=== PATIENT | female | born 1975 | race Caucasian/White ===

== ENCOUNTER 2021-06-14 21:30 | Observation (INO) ==
[2021-06-14 22:23] LABS: Basophils # (auto) 0.05 K/uL (0-0.2); Basophils % (auto) 0.8 %; Eosinophils % (auto) 1.5 %; Hematocrit (blood only) 41.7 % (37-47); Hemoglobin 14.9 g/dL (12.0-16.0); Immature Granulocytes # (auto) 0.02 K/uL (0.00-0.02); Immature Granulocytes % (auto) 0.3 %; Lymphocytes # (auto) 2.06 K/uL (1.2-3.4); Lymphocytes % (auto) 31.8 %; Mean Corpuscular Hemoglobin 31.4 pg (25-34); Mean Corpuscular Hgb Conc 35.7 g/dL (32-36); Mean Platelet Volume 9.1 fL (7.4-10.4); Monocytes # (auto) 0.54 K/uL (0.11-0.59); Monocytes % (auto) 8.3 %; Neutrophils % (auto) 57.3 %; Platelet Count 274 K/uL (130-400); RDW Coefficient of Variation 12.9 % (11.5-14.5); RDW Standard Deviation 42.4 fL (36.4-46.3); Red Blood Count 4.74 M/uL (4.2-5.4); White Blood Count 6.47 K/uL (4.8-10.8)
[2021-06-14 22:30] LABS: INR 1.1 (0.9-1.1); Partial Thromboplastin Ratio 0.9; Partial Thromboplastin Time 25.6 Seconds (21.0-31.0); Prothrombin Time 11.4 Seconds (9.0-12.0)
[2021-06-14 22:41] LABS: Albumin Globulin Ratio 1.4 (0.9-2); Albumin Level 4.8 gm/dl (3.4-5.0); BUN Creatinine Ratio 12.1 (10-20); Bilirubin,Total 0.4 mg/dl (0.2-1.0); Calcium 9.4 mg/dl (8.5-10.1); Creatinine Clr Calc Pharmacy 67.9 ml/min; Est GFR (African American) 79.8 ml/min; Est GFR (Non-African American) 68.8 ml/min; Globulin 3.4 gm/dl (2.5-4.0); Potassium 3.8 mmol/L (3.5-5.1); Total Protein 8.2 gm/dl (6.0-8.3)
[2021-06-14 22:45] LABS: Troponin I High Sensitivity 2.6 pg/ml (0-14)
[2021-06-14 22:57] LABS: D Dimer 200 ug/L FEU (0-500)
[2021-06-14] MEDS ORDERED: ASPIRIN 81 MG CHEW PO STA (23:03)
[2021-06-14] MEDS ORDERED: NITROGLYCERIN SL 0.4 MG/TAB TAB SL STA (23:03)
[2021-06-14] MEDS ORDERED: ASPIRIN CHEW 324 MG ONE (23:07)
[2021-06-14] MEDS ORDERED: ONDANSETRON INJ 2 MG/ML 2 ML VIAL IV STA (23:35)
--- NOTE | 2021-06-14 23:38 | Emergency Department Note ---
Impression & Plan Retrosternal chest pain, Severe hypertension ED Provider Note INFORMANT: Patient ED PROVIDER(S): Scott Paredes MD CHIEF COMPLAINT: Chest pain PLAN: Disposition: Admitted Condition: Good Outpatient prescription management: none Referral: None MEDICAL DECISION MAKING: Patient presented with chest pain. Work-up was initiated. Initial ECG revealed a nonspecific ST abnormality. No ST elevation. No pericarditis. Repeat ECG did not reveal any significant ST elevation. There was flattening of the T wave in V2. The patient had an unremarkable CBC, chemistry panel, troponin and D- dimer. She was given nitro due to severe hypertension and chest pain. She also given aspirin. She noted the nitro did not help with the pain. She was given a dose of Dilaudid and Zofran. That did help with her pain. She was given a GI cocktail which did not seem to have much effect. She was given another dose of Dilaudid. Chest x-ray was unremarkable. Given the hypertension and chest pain further management in the hospital was felt to be appropriate. This was discussed with the patient. Consultation was made with the [facility], Dr. Borges. The patient was evaluated in the ER for further management. Triage Nursing notes reviewed and agree them. Vital Signs: reviewed and remarkable for no significant abnormalities Differential diagnosis: Cardiac ischemia, aortic dissection, pulmonary embolism, pneumothorax, pneumonia, pericarditis, myocarditis, esophageal rupture, GERD, cholecystitis, pancreatitis, musculoskeletal, as well as other pathologies. Diagnostics interpreted by me: ECG: Twelve-lead ECG reveals a normal sinus rhythm at [address] abnormality. No ST elevation or depression. No pericarditis. Normal axis and QRS. ECG #2 reveals a normal sinus rhythm at 99 bpm. There is nonspecific T wave anteriorly. No ST elevation. Normal axis. Cardiac Monitoring: Cardiac monitoring ordered by me: The patient was placed on continuous cardiac monitoring and observed. It revealed a normal sinus rhythm at 91 beats per minute without ectopy or evidence of dysrhythmia. Imaging studies: Chest x-ray. Findings: A chest x-ray was performed and revealed no pneumothorax, effusion, infiltrate, pulmonary edema, free air under the diaphragm, or wide mediastinum. Impression: No acute disease. HPI: The patient is a 46 year old female who presents to the Emergency Room with complaints of chest pain . This started last night, resolved, recurred and is back since 1900 hrs tonight. Patient's notes it is retrosternal. Pain radiates to the neck and left shoulder. The patient also notes the following associated symptoms, mild shortness of breath. The patient has tried an extra Prilosec for relieving factors. Current pain is rated as 8/10. Pt denies LOC, headache, fevers, chills, diaphoresis, visual changes, neck pain, nausea, vomiting, abdominal pain, back pain, melena, hematochezia, urinary symptoms, numbness, weakness, lymphadenopathy, rash, or other complaints. ROS: See above HPI for pertinent positives & negatives. A total of 10 systems reviewed and were otherwise negative. PAST MEDICAL HISTORY:See Below , GERD PAST SURGICAL HISTORY:See Below, FAMILY HISTORY:See Below SOCIAL HISTORY:See Below, non-smoker HOME MEDICATIONS:See Below ALLERGIES:See Below VITALS:See Below PHYSICAL EXAMINATION: GENERAL: Awake, alert, uncomfortable-appearing, in no distress HENT: Normocephalic, atraumatic. Oropharynx unremarkable. EYES: Normal conjunctiva. Sclera non-icteric. NECK: Inspection normal. Non-tender. Supple. No nuchal rigidity. FROM. No masses. RESPIRATORY: Clear to auscultation. No wheezes. No rales. Normal respiratory effort. CARDIAC: Normal rate. Normal rhythm. No murmurs. No rubs. Extremities warm and well perfused. Pulses equal. No JVD. GI: Soft, non-distended. No tenderness to palpation. No rebound or guarding. No masses. RECTAL: Deferred. MUSCULOSKELETAL: Atraumatic. Chest examination reveals no tenderness. The back is symmetrical on inspection without obvious abnormality. There is no CVA tenderness to palpation. No joint edema. LOWER EXTREMITIES: Calves are equal size bilaterally and non-tender. No edema. No discoloration. NEURO: Normal sensorium. No sensory or motor deficits noted. SKIN: No rash or jaundice noted. Scott Paredes MD Past Med/Surg History Social History Smoking Status: Never smoker Feels Safe at Home: Yes Allergies Allergies Allergy/AdvReac Type Severity Reaction Status Date / Time Penicillins Allergy Rash Verified 06/14/21 22:23 Home Meds Home Medications Medication Instructions Recorded Confirmed ibuprofen 200 mg tablet 600 mg PO Q6H PRN 06/14/21 06/14/21 omeprazole 40 mg capsule,delayed 40 mg PO DAILY 06/14/21 06/14/21 release Results & Data (ED) Vital Signs Vital Signs - 24 hr 06/14/21 21:32 06/14/21 21:50 06/14/21 22:00 Temperature 36.6 C Temperature Source Temporal Artery Scan Pulse Rate 113 H 114 H 116 H Pulse Rate [Apical] Pulse Rate from SpO2 Sensor Pulse Rhythm [Apical] Respiratory Rate 16 25 H 15 Respiratory Depth Blood Pressure 141/99 H Blood Pressure [Left Arm] Blood Pressure Mean 113 Blood Pressure Mean [Left Arm] Blood Pressure Position Sitting Pulse Oximetry 98 Oxygen Delivery Method Room Air Sepsis Recent Fever Within 48 Hours No Sepsis New/Unexplained Change in Mental Status No Sepsis Action Taken by Nursing No Action Required 06/14/21 22:10 06/14/21 22:15 06/14/21 22:16 Temperature Temperature Source Pulse Rate 123 H Pulse Rate [Apical] 108 H Pulse Rate from SpO2 Sensor Pulse Rhythm [Apical] Regular Respiratory Rate 25 H 18 Respiratory Depth Normal Blood Pressure Blood Pressure [Left Arm] Blood Pressure Mean Blood Pressure Mean [Left Arm] Blood Pressure Position Pulse Oximetry 99 Oxygen Delivery Method Room Air Room Air Sepsis Recent Fever Within 48 Hours Sepsis New/Unexplained Change in Mental Status Sepsis Action Taken by Nursing 06/14/21 22:18 06/14/21 22:20 06/14/21 22:30 Temperature Temperature Source Pulse Rate 109 H 112 H 101 H Pulse Rate [Apical] Pulse Rate from SpO2 Sensor 109 H 115 H 101 H Pulse Rhythm [Apical] Respiratory Rate 20 25 H 19 Respiratory Depth Blood Pressure 191/102 H 202/110 H Blood Pressure [Left Arm] Blood Pressure Mean 131 140 Blood Pressure Mean [Left Arm] Blood Pressure Position Pulse Oximetry 100 98 100 Oxygen Delivery Method Sepsis Recent Fever Within 48 Hours Sepsis New/Unexplained Change in Mental Status Sepsis Action Taken by Nursing 06/14/21 22:31 06/14/21 22:40 06/14/21 22:50 Temperature Temperature Source Pulse Rate 104 H 105 H Pulse Rate [Apical] 100 H Pulse Rate from SpO2 Sensor 100 H 102 H Pulse Rhythm [Apical] Respiratory Rate 15 16 23 Respiratory Depth Blood Pressure Blood Pressure [Left Arm] 202/110 H Blood Pressure Mean Blood Pressure Mean [Left Arm] 140 Blood Pressure Position Pulse Oximetry 99 100 98 Oxygen Delivery Method Room Air Sepsis Recent Fever Within 48 Hours Sepsis New/Unexplained Change in Mental Status Sepsis Action Taken by Nursing 06/14/21 23:00 06/14/21 23:10 06/14/21 23:20 Temperature Temperature Source Pulse Rate 109 H 128 H 110 H Pulse Rate [Apical] Pulse Rate from SpO2 Sensor 107 H 126 H 112 H Pulse Rhythm [Apical] Respiratory Rate 21 20 14 Respiratory Depth Blood Pressure 201/119 H Blood Pressure [Left Arm] Blood Pressure Mean 146 Blood Pressure Mean [Left Arm] Blood Pressure Position Pulse Oximetry 99 98 98 Oxygen Delivery Method Sepsis Recent Fever Within 48 Hours Sepsis New/Unexplained Change in Mental Status Sepsis Action Taken by Nursing 06/14/21 23:25 06/14/21 23:30 06/15/21 00:00 Temperature Temperature Source Pulse Rate 103 H 104 H 96 H Pulse Rate [Apical] Pulse Rate from SpO2 Sensor Pulse Rhythm [Apical] Respiratory Rate 18 15 19 Respiratory Depth Blood Pressure 178/104 H 169/114 H 163/105 H Blood Pressure [Left Arm] Blood Pressure Mean 128 132 124 Blood Pressure Mean [Left Arm] Blood Pressure Position Pulse Oximetry 99 100 99 Oxygen Delivery Method Sepsis Recent Fever Within 48 Hours Sepsis New/Unexplained Change in Mental Status Sepsis Action Taken by Nursing 06/15/21 00:30 06/15/21 01:00 06/15/21 01:30 Temperature Temperature Source Pulse Rate 98 H 95 H 105 H Pulse Rate [Apical] Pulse Rate from SpO2 Sensor Pulse Rhythm [Apical] Respiratory Rate 21 16 Respiratory Depth Blood Pressure 185/115 H 166/109 H 182/123 H Blood Pressure [Left Arm] Blood Pressure Mean 138 128 142 Blood Pressure Mean [Left Arm] Blood Pressure Position Pulse Oximetry 97 99 97 Oxygen Delivery Method Sepsis Recent Fever Within 48 Hours Sepsis New/Unexplained Change in Mental Status Sepsis Action Taken by Nursing 06/15/21 01:35 Temperature Temperature Source Pulse Rate Pulse Rate [Apical] 99 H Pulse Rate from SpO2 Sensor Pulse Rhythm [Apical] Regular Respiratory Rate Respiratory Depth Normal Blood Pressure Blood Pressure [Left Arm] Blood Pressure Mean Blood Pressure Mean [Left Arm] Blood Pressure Position Pulse Oximetry 95 Oxygen Delivery Method Room Air Sepsis Recent Fever Within 48 Hours Sepsis New/Unexplained Change in Mental Status Sepsis Action Taken by Nursing Laboratory Data Result diagrams: 06/14/21 21:50 06/14/21 21:50 Lab Results 06/14/21 06/14/21 06/14/21 Range/Units 21:50 21:50 21:50 WBC 6.47 (4.8-10.8) K/uL RBC 4.74 (4.2-5.4) M/uL Hgb 14.9 (12.0-16.0) g/dL Hct 41.7 (37-47) % MCV 88.0 (80-100) fL MCH 31.4 (25-34) pg MCHC 35.7 (32-36) g/dL RDW Std Deviation 42.4 (36.4-46.3) fL RDW Coeff of Maryanne 12.9 (11.5-14.5) % Plt Count 274 (130-400) K/uL MPV 9.1 (7.4-10.4) fL Immature Gran % (Auto) 0.3 % Neut % (Auto) 57.3 % Lymph % (Auto) 31.8 % [place] % (Auto) 8.3 % Eos % (Auto) 1.5 % Baso % (Auto) 0.8 % Neut # (Auto) 3.70 (1.4-6.5) K/uL Lymph # (Auto) 2.06 (1.2-3.4) K/uL [place] # (Auto) 0.54 (0.11-0.59) K/uL Eos # (Auto) 0.10 (0-0.5) K/uL Baso # (Auto) 0.05 (0-0.2) K/uL Immature Gran # (Auto) 0.02 (0.00-0.02) K/uL PT 11.4 (9.0-12.0) Seconds INR 1.1 (0.9-1.1) APTT 25.6 (21.0-31.0) Seconds PTT Ratio 0.9 D-Dimer (0-500) ug/L FEU Sodium 137 (136-145) mmol/L Potassium 3.8 (3.5-5.1) mmol/L Chloride 104 (98-107) mmol/L Carbon Dioxide 25 (21-32) mmol/L Anion Gap 8 (3-11) BUN 12 (6-23) mg/dl Creatinine 0.99 (0.6-1.2) mg/dl Est Cr Clr Drug Dosing 67.9 ml/min Est GFR ( Amer) 79.8 ml/min Est GFR (Non-Af Amer) 68.8 ml/min BUN/Creatinine Ratio 12.1 (10-20) Glucose 89 (70-99(Fasting)) mg/dl Calcium 9.4 (8.5-10.1) mg/dl Total Bilirubin 0.4 (0.2-1.0) mg/dl AST 14 (13-39) U/L ALT 4 L (7-52) U/L Alkaline Phosphatase 54 (34-104) U/L Troponin I High Sens 2.6 (0-14) pg/ml Total Protein 8.2 (6.0-8.3) gm/dl Albumin 4.8 (3.4-5.0) gm/dl Globulin 3.4 (2.5-4.0) gm/dl Albumin/Globulin Ratio 1.4 (0.9-2) Lipase 27 (11-82) U/L SARS-CoV-2, RNA, NAAT (NEGATIVE) 06/14/21 06/15/21 06/15/21 Range/Units 21:50 00:55 01:18 WBC (4.8-10.8) K/uL RBC (4.2-5.4) M/uL Hgb (12.0-16.0) g/dL Hct (37-47) % MCV (80-100) fL MCH (25-34) pg MCHC (32-36) g/dL RDW Std Deviation (36.4-46.3) fL RDW Coeff of Maryanne (11.5-14.5) % Plt Count (130-400) K/uL MPV (7.4-10.4) fL Immature Gran % (Auto) % Neut % (Auto) % Lymph % (Auto) % [place] % (Auto) % Eos % (Auto) % Baso % (Auto) % Neut # (Auto) (1.4-6.5) K/uL Lymph # (Auto) (1.2-3.4) K/uL [place] # (Auto) (0.11-0.59) K/uL Eos # (Auto) (0-0.5) K/uL Baso # (Auto) (0-0.2) K/uL Immature Gran # (Auto) (0.00-0.02) K/uL PT (9.0-12.0) Seconds INR (0.9-1.1) APTT (21.0-31.0) Seconds PTT Ratio D-Dimer 200 (0-500) ug/L FEU Sodium (136-145) mmol/L Potassium (3.5-5.1) mmol/L Chloride (98-107) mmol/L Carbon Dioxide (21-32) mmol/L Anion Gap (3-11) BUN (6-23) mg/dl Creatinine (0.6-1.2) mg/dl Est Cr Clr Drug Dosing ml/min Est GFR ( Amer) ml/min Est GFR (Non-Af Amer) ml/min BUN/Creatinine Ratio (10-20) Glucose (70-99(Fasting)) mg/dl Calcium (8.5-10.1) mg/dl Total Bilirubin (0.2-1.0) mg/dl AST (13-39) U/L ALT (7-52) U/L Alkaline Phosphatase (34-104) U/L Troponin I High Sens < 2.3 (0-14) pg/ml Total Protein (6.0-8.3) gm/dl Albumin (3.4-5.0) gm/dl Globulin (2.5-4.0) gm/dl Albumin/Globulin Ratio (0.9-2) Lipase (11-82) U/L SARS-CoV-2, RNA, NAAT NEGATIVE (NEGATIVE) Administered Medications Nitroglycerin (Nitroglycerin 2% Ointment 30gm Tube) 0.5 inch EXT Q6H ALVARO Stop: 07/15/21 02:01 Last Admin: 06/15/21 02:15 Dose: 0.5 inch Documented by: [id number] Discontinued Medications Al Hydrox/Mg Hydrox/Simethicone (Gi Cocktail Ed Use) Confirm Administered Dose 1 dose PO .STK-MED ONE Stop: 06/15/21 00:22 Last Admin: 06/15/21 00:27 Dose: 1 dose Documented by: [id number] Aspirin (Aspirin 81 Mg Chew) 324 mg PO NOW STA Stop: 06/14/21 23:04 Last Admin: 06/14/21 23:10 Dose: 324 mg Documented by: [id number] Aspirin (Aspirin Chew 324 Mg) Confirm Administered Dose 324 mg .ROUTE .STK-MED ONE Stop: 06/14/21 23:08 Last Admin: 06/14/21 23:10 Dose: Not Given Documented by: [id number] Al Hydrox/Mg Hydrox/Simethicone 18 ml/ Lidocaine HCl 6 ml/ BARCODE IDENTIFIER 1 ea 0 ml PO ONE ONE Stop: 06/15/21 00:24 Last Admin: 06/15/21 00:28 Dose: Not Given Documented by: [id number] Hydromorphone HCl (Hydromorphone Inj 0.5 Mg/0.5 Ml Syr) 0.5 mg IV Q15M PRN PRN Reason: Pain Stop: 06/28/21 23:34 Last Admin: 06/15/21 01:32 Dose: 0.5 mg Documented by: [id number] Admin: 06/14/21 23:54 Dose: 0.5 mg Documented by: [id number] Nitroglycerin (Nitroglycerin Sl 0.4 Mg/Tab Tab) 0.4 mg SL NOW STA Stop: 06/14/21 23:04 Last Admin: 06/14/21 23:10 Dose: 0.4 mg Documented by: [id number] Ondansetron HCl (Ondansetron Inj 2 Mg/Ml 2 Ml Vial) 4 mg IV NOW STA Stop: 06/14/21 23:36 Last Admin: 06/14/21 23:55 Dose: Not Given Documented by: [id number] Discharge Plan Visit Data Chief Complaint: Chest Pain Stated Complaint: CHEST PAIN, LEFT SHOULDER PAIN ED Provider: Scott Paredes Discharge Problem: Retrosternal chest pain, Severe hypertension Patient Disposition: Admitted As Inpatient Discharge Instructions Interventions: ED Discharge Assessment Last Done: 06/15/21 02:28
[2021-06-14] MEDS: HYDROmorphone INJ 0.5 MG/0.5 ML SYR IV PRN (23:54)
[2021-06-15] MEDS ORDERED: GI COCKTAIL ED USE PO ONE (00:21)
[2021-06-15] MEDS ORDERED: ALUMINUM/MAGNESIUM SUSP 18 ML, LIDOCAINE VISCOUS 2% SOLN 6 ML, BARCODE IDENTIFIER 1 EA PO ONE (00:23)
[2021-06-15] MEDS: HYDROmorphone INJ 0.5 MG/0.5 ML SYR IV PRN ×4 (01:32→14:16)
[2021-06-15] MEDS: NITROGLYCERIN 2% OINTMENT 30GM TUBE EXT SCH ×4 (02:15→21:58)
[2021-06-15] MEDS ORDERED: POLYETHYLENE (MIRALAX) 17 GM PACK PO PRN (02:58)
[2021-06-15] MEDS ORDERED: NITROGLYCERIN SL 0.4 MG/TAB TAB SL PRN (02:58)
[2021-06-15] MEDS ORDERED: ACETAMINOPHEN 325 MG TAB PO PRN (02:58)
[2021-06-15] MEDS ORDERED: METOPROLOL TARTRATE 1 MG/ML VIAL IV PRN (02:58)
[2021-06-15 05:52] LABS: Basophils # (auto) 0.04 K/uL (0-0.2); Basophils % (auto) 0.6 %; Eosinophils # (auto) 0.06 K/uL (0-0.5); Eosinophils % (auto) 0.9 %; Hematocrit (blood only) 35.4 % (37-47); Hemoglobin 12.6 g/dL (12.0-16.0); Lymphocytes # (auto) 1.71 K/uL (1.2-3.4); Lymphocytes % (auto) 26.9 %; Mean Corpuscular Hemoglobin 31.2 pg (25-34); Mean Corpuscular Hgb Conc 35.6 g/dL (32-36); Mean Corpuscular Volume 87.6 fL (80-100); Mean Platelet Volume 8.9 fL (7.4-10.4); Monocytes # (auto) 0.75 K/uL (0.11-0.59); Monocytes % (auto) 11.8 %; Neutrophils % (auto) 59.8 %; Platelet Count 231 K/uL (130-400); RDW Standard Deviation 41.9 fL (36.4-46.3); Red Blood Count 4.04 M/uL (4.2-5.4); White Blood Count 6.36 K/uL (4.8-10.8)
[2021-06-15 06:21] LABS: Troponin I High Sensitivity 2.3 pg/ml (0-14)
[2021-06-15 06:27] LABS: BUN Creatinine Ratio 18.2 (10-20); Calcium 8.7 mg/dl (8.5-10.1); Chol HDL Ratio 2.7 (0-5); Creatinine Clr Calc Pharmacy 74.5 ml/min; Est GFR (Non-African American) 79.3 ml/min
--- NOTE | 2021-06-15 07:09 | XRay Report ---
XR chest 1V portable HISTORY: 46 years-old Female Chest Pain . Acute atypical chest pain COMPARISON: None TECHNIQUE: Portable AP view of the chest FINDINGS: The cardiomediastinal and hilar silhouettes are within normal limits. No pneumothorax, pleural effusi on, airspace consolidation or overt pulmonary edema. The bones appear grossly intact. IMPRESSION: No acute process. ACT 112: Negative or not required by law. The above report was generated using voice recognition software. It may contain grammatical, syntax o r spelling errors. Electronically signed by: Bharath Kee M.D. 06/15/2021 7:08 AM
[2021-06-15] MEDS: PANTOprazole 40 MG TAB PO SCH (07:28)
[2021-06-15] MEDS: ASPIRIN 81 MG ECTAB PO SCH (07:28)
[2021-06-15 07:52] LABS: Estimated Average Glucose 103 mg/dl; Hemoglobin A1C 5.2 % (4.5-5.6)
--- NOTE | 2021-06-15 07:58 | History and Physical Report ---
DATE OF ADMISSION: 06/14/2021. CHIEF COMPLAINT: Chest pain. HISTORY OF PRESENT ILLNESS: This is a 46-year-old female with no significant past medical history, who presented with chest pain. The patient says on Sunday from 3:00 to 11:00 p.m. she had chest pain, but it got resolved in the night and she went to sleep and again on 06/14/2021 in the evening she started having chest pain in the middle of the chest and some tightness in her throat and pain was radiating to her left shoulder and some tingliness in the left arm, about 5/10 in severity, but constant pain. Once in a while, she used to get jabs, which are like 8/10 in severity, which prompted her to come to the ER. In the ER, she was given nitro. She was found to have elevated blood pressure. With the nitro, the blood pressure dropped a little bit, but it did not help her pain much and GI cocktail was given, that also did not help much. After a dose of Dilaudid, her pain has come down to 3/10 in severity. Currently, resting comfortably, hemodynamically stable. There is no nausea, no sweating, no headache or dizziness. No blurred visions, no shortness of breath. Appetite is okay. No difficulty swallowing. No blurred visions, no earache, no runny nose, no cough, no fevers, no abdominal pain. Normal bowel and bladder movements. No swelling in the legs. Otherwise, walks and climbs steps okay. The patient states about a couple of years ago, when she was having breast biopsy, in 2019 she was told that her blood pressure was running high at that time, but she does not go to doctors regularly. ALLERGIES: PENICILLIN. PAST MEDICAL HISTORY: As mentioned above. PAST SURGICAL HISTORY: Excision of the breast lesion. MEDICATIONS: Omeprazole 40 mg p.o. daily, ibuprofen as needed. FAMILY HISTORY: Significant for maternal grandmother had breast cancer. SOCIAL HISTORY: No smoking. Alcohol occasional. No drug use. REVIEW OF SYSTEMS: As per HPI. Rest of the review of systems is negative. PHYSICAL EXAMINATION: GENERAL: The patient is of moderate build, not in acute distress. VITAL SIGNS: Temperature 36.6, pulse 99, respiratory rate 21, blood pressure 166/109, oxygen 95% on room air. HEENT: Pupils equal, round and reactive to light. Oral mucosa moist. NECK: No JVD, no neck masses. CARDIOVASCULAR: S1 and S2 heard. Regular rate and rhythm. No murmur, no gallop. RESPIRATORY SYSTEM: Normal AP diameter. No accessory muscle use. No wheezing, no crackles. ABDOMEN: Soft. Bowel sounds present. Nontender, no distention. CENTRAL NERVOUS SYSTEM: Cranial nerves II-XII grossly intact, nonfocal. EXTREMITIES: No edema, no erythema. LABORATORY DATA: WBC 6.4, hemoglobin 14.9, hematocrit 41.7, platelets 274. PT 11.4, INR 1.1, APTT 25.6. D-dimer 200. Sodium 137, potassium 3.8, chloride 104, bicarbonate 25, BUN 12, creatinine 0.9, serum glucose 89, calcium 9.4, total bilirubin 0.4, AST 14, ALT 4, alkaline phosphatase 54. Troponin I high sensitivity less than 2.3, lipase of 27. SARS-CoV-2 RNA negative. IMAGING DATA: Chest x-ray, no acute findings. EKG: Normal sinus rhythm at a rate of 99, no significant change was found. ASSESSMENT AND PLAN: This is a 46-year-old female who presents with chest pain and also hypertensive urgency. 1. Chest pain: Rule out acute coronary syndrome. The initial workup is negative. Will follow serial enzymes, echo. Keep her n.p.o. and consult cardiology in the a.m. for further recommendation. Monitor in the tele. 2. Hypertensive urgency: Could be cause of her chest pain. Says couple of years ago when she had breast biopsy, at that time she was told that her blood pressure is very high and had to hold the procedure for some time at that time. Will place her on nitroglycerin paste and also IV Lopressor p.r.n. Will follow the echocardiogram,for any LVH. May need antihypertensives at the time of discharge. Needs to closely follow up with PCP. 3. Deep venous thrombosis prophylaxis: Sequential compression devices. DISPOSITION: Observation in med tele. PT/OT prior to discharge. Social service to help with discharge planning. Job ID: [id number] MTDD
[2021-06-15] MEDS: amLODIPine BESYLATE 5 MG TAB PO SCH (09:06)
[2021-06-15] MEDS: ONDANSETRON INJ 2 MG/ML 2 ML VIAL IV PRN ×2 (09:12→18:15)
[2021-06-15] MEDS: ACETAMINOPHEN SUSP 325 MG/10.15 ML UDC PO PRN ×2 (10:17→18:11)
--- NOTE | 2021-06-15 11:17 | Communication Note ---
Date of Service: June 15, 2021 Patient seen and examined 46F who presented with chest pain. Reported h/o left rotator cuff problems for some years with intermittent left shoulder pain. Reported an episode of chest pain this morning, described as sharp, lasted about 10-20 mins,not referred, not associated with diaphoresis at the time. EKG at the time did not show ST-T changes. Reports headache and nausea at the time of my evaluation. Physical exam unremarkable. Labs unremarkable including troponins. Chest pain EKG did not show ST-T changes. Troponins negative so far. Denied family hx of heart problems. Denied smoking/illicit drug use Will appreciate Cards eval. Will follow up TTE Other possibilities include GI related such as gastritis/esophagitis considering patient's use of ibuprofen for shoulder pain. Continue PPI BP was markedly elevated on presentation. Patient also reports being told her BP was elevated 3 yrs ago. Has not seen a PCP in 4 yrs. Hence, has Hypertensive urgency. This could be contributing to chest pain. Started on amlodipine this morning. Agree with other plans as detailed in H&P by Dr Borges this morning
--- NOTE | 2021-06-15 13:44 | Cardiology Consultation ---
Date of Consultation June 15, 2021 Assessment & Plan (1) Hypertensive urgency: (2) Chest pain: (3) Headache: The pathophysiology of hypertensive urgency was discussed with the patient at great lengths today. Her echocardiogram reveals normal wall motion with mild concentric LVH. She has been started on amlodipine 5 mg daily with good response I will also check a renal artery ultrasound to complete her secondary work-up. Consideration given be given to sleep medicine evaluation as an outpatient as well. Recommend follow-up as an outpatient in 2 weeks and consideration for stress testing will be given at that time. Okay to discharge to home from a cardiac standpoint. History of Present Illness Reason for Consultation: Hypertensive urgency Requesting Physician: ROBERT Attending Physician: Kianna Jimenez MD Allergies Allergy/AdvReac Type Severity Reaction Status Date / Time Penicillins Allergy Rash Verified 06/14/21 22:23 Home Medications Medication Instructions Recorded Confirmed Type ibuprofen 200 mg tablet 600 mg PO Q6H PRN 06/14/21 06/14/21 History omeprazole 40 mg capsule,delayed 40 mg PO DAILY 06/14/21 06/14/21 History release Patient History Social History Smoking Status: Never smoker Second Hand Exposure: No; Do You Dip or Chew Tobacco: No; Tobacco Cessation Education Requested by Patient: No Hx Alcohol Use: Yes Alcohol type: beer Hx Substance Use: No Preferred Language: [place] Communication Ability: Effective Pharmacy Operations Specialist Required: No Beliefs That Will Affect Care: None Current Living Situation: Spouse Other Information That Helps Us Care for You: No Feels Safe at Home: Yes Safety Concerns: Feels Safe At This Time Assistive Devices: None Review of Systems Review of Systems: All systems reviewed & are unremarkable except as noted in HPI & below Physical Exam Physical Exam: Physical Exam: General: Awake, alert and oriented x 3. No acute distress. HEENT: Normocephalic, atraumatic. Pupils equal, round and reactive to light and accommodation. Extraocular muscles are intact. Anicteric sclera. Moist mucous membranes. Neck: No JVD. No bruit. Cardiovascular: Regular. No S-4. Normal S-1 and S-2. No S-3. No murmurs, rubs or gallops. Pulmonary: Clear to auscultation bilaterally. No rales, rhonchi, or wheezing. Abdomen: Bowel sounds x 4, soft. No rebound, guarding or tenderness. No organomegaly. Extremities: No clubbing, cyanosis or edema. +2 pedal pulses bilaterally. Skin: Warm and dry. Results & Data ([facility]) Vital Signs (Past 12 Hours) Vital Signs Temp Pulse Pulse Resp BP BP Pulse Ox 06/15/21 11:25 36.7 C 101 H 16 137/84 97 06/15/21 09:10 75 157/82 H 06/15/21 07:29 89 178/88 H 06/15/21 06:15 82 06/15/21 04:51 142/91 H 06/15/21 02:58 36.8 C 93 H 104 H 18 181/112 H 97 06/15/21 02:30 99 H 12 97 06/15/21 02:24 104 H 12 179/109 H 99 06/15/21 02:00 91 H 15 184/108 H 99 Pulse Ox 06/15/21 11:25 06/15/21 09:10 06/15/21 07:29 06/15/21 06:15 06/15/21 04:51 06/15/21 02:58 97 06/15/21 02:30 06/15/21 02:24 06/15/21 02:00
--- NOTE | 2021-06-15 14:36 | Ultrasound Report ---
US duplex renal artery HISTORY: 46 years-old Female new onset hypertension acute hypertension COMPARISON: None TECHNIQUE: Multiple real-time sonographic images of the renal vascular structures were obtained asses sing grayscale appearance, color and spectral flow FINDINGS: The right kidney measures 11 cm in length. No shadowing right-sided renal calculi. Peak systolic [place] within the right renal artery measure up to 120 cm/s with resistive indices measuring up to 0. 71. 6 mm calculus within the interpolar left kidney. No hydronephrosis. Peak systolic velocities within t he left renal artery measure up to 81 cm/s with resistive indices measuring up to 0.72. Left renal ar jayde is suboptimally visualized. Normal plug flow within the abdominal aorta with peak systolic velocities measuring up to 108 cm/s. IMPRESSION: No evidence of renal artery stenosis. ACT 112: Negative or not required by law. The above report was generated using voice recognition software. It may contain grammatical, syntax o r spelling errors. Electronically signed by: Bharath Kee M.D. 06/15/2021 2:34 PM
--- NOTE | 2021-06-15 20:06 | CT Scan Report ---
CT SCAN OF THE BRAIN WITHOUT IV CONTRAST CLINICAL HISTORY: Headache. Hypertensive urgency. COMPARISON STUDY: No priors. TECHNIQUE: Unenhanced axial CT scan of the brain is performed from the vertex to the skull base. A d ose lowering technique was utilized adhering to the principles of ALARA. CT DOSE: 537.48 mGy.cm FINDINGS: Brain parenchyma: The brain parenchyma is normal in appearance. There is no hemorrhage, mass effect, or evidence of acute territorial ischemia by CT criteria. Cortes-white matter differentiation is preser giulia. No extra-axial fluid collection is seen. Ventricles, sulci, cisterns: Normal in configuration. Intracranial vasculature: The visualized intracranial vasculature at the skull base is normal in appe arance. Calvarium: Unremarkable. Sinuses and mastoids: The visualized paranasal sinuses are clear. The mastoid air cells are well pneu matized. Orbits: The bony orbits are grossly intact. IMPRESSION: No acute intracranial abnormality. ACT 112: Negative or not required by law. Electronically signed by: Elie Locke M.D. 06/15/2021 8:03 PM
[2021-06-15] MEDS ORDERED: PROMETHAZINE HCL 12.5 MG in SODIUM CHLORIDE 0.9% 50 ML IV PRN (21:48)
[2021-06-15] MEDS ORDERED: traMADol HCL 50 MG TABLET PO PRN (21:48)
[2021-06-15] MEDS ORDERED: HYDROmorphone INJ 0.5 MG/0.5 ML SYR IV STA (22:46)
[2021-06-16] MEDS: ACETAMINOPHEN SUSP 325 MG/10.15 ML UDC PO PRN (02:33)
--- NOTE | 2021-06-16 05:54 | Electrocardiogram Report ---
Test Reason : Blood Pressure : / mmHG Vent. Rate : 099 BPM Atrial Rate : 099 BPM P-R Int : 116 ms QRS Dur : 074 ms QT Int : 328 ms P-R-T Axes : 049 038 016 degrees QTc Int : 420 ms Normal sinus rhythm Nonspecific ST abnormality Abnormal ECG No previous ECGs available Confirmed by Russell Hooper ([id number]) on 06/16/2021 5:54:38 AM Referred By: REFERRED SELF Confirmed By:Russell Hooper
--- NOTE | 2021-06-16 05:56 | Electrocardiogram Report ---
Test Reason : Blood Pressure : / mmHG Vent. Rate : 099 BPM Atrial Rate : 099 BPM P-R Int : 118 ms QRS Dur : 076 ms QT Int : 342 ms P-R-T Axes : 055 049 029 degrees QTc Int : 438 ms Normal sinus rhythm Possible Left atrial enlargement Borderline ECG When compared with ECG of 14-JUN-2021 21:37, No significant change was found Confirmed by Russell Hooper ([id number]) on 06/16/2021 5:56:06 AM Referred By: REFERRED SELF Confirmed By:Russell Hooper
--- NOTE | 2021-06-16 06:11 | Electrocardiogram Report ---
Test Reason : Blood Pressure : / mmHG Vent. Rate : 091 BPM Atrial Rate : 091 BPM P-R Int : 132 ms QRS Dur : 088 ms QT Int : 368 ms P-R-T Axes : 044 033 007 degrees QTc Int : 452 ms Normal sinus rhythm Normal ECG When compared with ECG of 15-JUN-2021 07:17, No significant change was found Confirmed by Russell Hooper ([id number]) on 06/17/2021 6:35:50 AM Referred By: REFERRED SELF Confirmed By:Russell Hooper
[2021-06-16 07:28] LABS: Hematocrit (blood only) 37.6 % (37-47); Mean Corpuscular Hemoglobin 30.6 pg (25-34); Mean Corpuscular Hgb Conc 34.6 g/dL (32-36); Mean Corpuscular Volume 88.5 fL (80-100); Mean Platelet Volume 9.1 fL (7.4-10.4); Platelet Count 236 K/uL (130-400); RDW Coefficient of Variation 13.1 % (11.5-14.5); Red Blood Count 4.25 M/uL (4.2-5.4); White Blood Count 7.77 K/uL (4.8-10.8)
[2021-06-16 07:43] LABS: BUN Creatinine Ratio 15.4 (10-20); Creatinine Clr Calc Pharmacy 84.1 ml/min; Est GFR (African American) 106.4 ml/min; Est GFR (Non-African American) 91.8 ml/min; Potassium 3.7 mmol/L (3.5-5.1)
[2021-06-16] MEDS: amLODIPine BESYLATE 5 MG TAB PO SCH (07:52)
[2021-06-16] MEDS: PANTOprazole 40 MG TAB PO SCH (07:53)
[2021-06-16] MEDS: ASPIRIN 81 MG ECTAB PO SCH (07:53)
[2021-06-16] MEDS ORDERED: ACETAMINOPHEN/CODEINE 120MG/12MG 5ML UDP PO ONE (08:02)
[2021-06-16] MEDS ORDERED: IBUPROFEN 200 MG TAB PO STA (08:05)
--- NOTE | 2021-06-16 09:39 | Electrocardiogram Report ---
Test Reason : Blood Pressure : / mmHG Vent. Rate : 086 BPM Atrial Rate : 086 BPM P-R Int : 132 ms QRS Dur : 082 ms QT Int : 388 ms P-R-T Axes : 059 056 023 degrees QTc Int : 464 ms Normal sinus rhythm Normal ECG When compared with ECG of 14-JUN-2021 23:03, No significant change was found Confirmed by Russell Hooper ([id number]) on 06/16/2021 6:10:34 AM Also confirmed by Russell Hooper ([id number]), design editor Eric Chen ([id number]) on 06/16/2021 9:39:18 AM Referred By: REFERRED SELF Confirmed By:Russell Hooper
[2021-06-16] MEDS ORDERED: amLODIPine BESYLATE 5 MG TAB PO ONE (10:31)
--- NOTE | 2021-06-16 10:32 | Cardiology Progress Note ---
Date of Service June 16, 2021 Assessment & Plan (1) Hypertensive urgency: (2) Chest pain: (3) Headache: Plan: The pathophysiology of hypertensive urgency was discussed with the patient at great lengths today. Her echocardiogram reveals normal wall motion with mild concentric LVH. She has been started on amlodipine 5 mg daily with good response I will also check a renal artery ultrasound to complete her secondary work-up. Consideration given be given to sleep medicine evaluation as an outpatient as well. Recommend follow-up as an outpatient in 2 weeks and consideration for stress testing will be given at that time. Okay to discharge to home from a cardiac standpoint. Admission and Anticipated Discharge Date Admission Date: June 15, 2021 Review of Systems Review of Systems: All systems reviewed & are unremarkable except as noted in HPI & below Physical Exam Physical Exam: Physical Exam: General: Awake, alert and oriented x 3. No acute distress. HEENT: Normocephalic, atraumatic. Pupils equal, round and reactive to light and accommodation. Extraocular muscles are intact. Anicteric sclera. Moist mucous membranes. Neck: No JVD. No bruit. Cardiovascular: Regular. No S-4. Normal S-1 and S-2. No S-3. No murmurs, rubs or gallops. Pulmonary: Clear to auscultation bilaterally. No rales, rhonchi, or wheezing. Abdomen: Bowel sounds x 4, soft. No rebound, guarding or tenderness. No organomegaly. Extremities: No clubbing, cyanosis or edema. +2 pedal pulses bilaterally. Skin: Warm and dry. Results & Data ([facility]) Vital Signs (Past 12 Hours) Vital Signs Temp Pulse Pulse Resp BP Pulse Ox 06/16/21 07:47 36.8 C 97 H 20 143/94 H 96 06/16/21 07:06 79 06/16/21 03:00 36.8 C 105 H 20 135/77 97 06/15/21 23:50 100 H 06/15/21 22:44 37 C 91 H 20 160/96 H 96
--- NOTE | 2021-06-16 11:22 | Discharge Summary ---
Date of Service June 16, 2021 Admission HPI Per Admitting Provider This is a 46-year-old female with no significant past medical history, who presented with chest pain. The patient says on Sunday from 3:00 to 11:00 p.m. she had chest pain, but it got resolved in the night and she went to sleep and again on 06/14/2021 in the evening she started having chest pain in the middle of the chest and some tightness in her throat and pain was radiating to her left shoulder and some tingliness in the left arm, about 5/10 in severity, but constant pain. Once in a while, she used to get jabs, which are like 8/10 in severity, which prompted her to come to the ER. In the ER, she was given n itro. She was found to have elevated blood pressure. With the nitro, the blood pressure dropped a little bit, but it did not help her pain much and GI cocktail was given, that also did not help much. After a dose of Dilaudid, her pain has come down to 3/10 in severity. Currently, resting comfortably, hemodynamically stable. There is no nausea, no sweating, no headache or dizziness. No blurred visions, no shortness of breath. Appetite is okay. No difficulty swallowing. No blurred visions, no earache, no runny nose, no cough, no fevers, no abdominal pain. Normal bowel and bladder movements. No swelling in the legs. Otherwise, walks and climbs steps okay. The patient states about a couple of years ago, when she was having breast biopsy, in 2019 she was told that her blood pressure was running high at that time, but she does not go to doctors regularly Admission Exam Per Admitting Provider GENERAL: The patient is of moderate build, not in acute distress. VITAL SIGNS: Temperature 36.6, pulse 99, respiratory rate 21, blood pressure 166/109, oxygen 95% on room air. HEENT: Pupils equal, round and reactive to light. Oral mucosa moist. NECK: No JVD, no neck masses. CARDIOVASCULAR: S1 and S2 heard. Regular rate and rhythm. No murmur, no gallop. RESPIRATORY SYSTEM: Normal AP diameter. No accessory muscle use. No wheezing, no crackles. ABDOMEN: Soft. Bowel sounds present. Nontender, no distention. CENTRAL NERVOUS SYSTEM: Cranial nerves II-XII grossly intact, nonfocal. EXTREMITIES: No edema, no erythema. Principal Diagnosis Chest pain Hypertension, poorly controlled Discharge Exam Constitutional + well hydrated; no acute distress Eyes PERRL, conjunctivae normal, anicteric sclerae Respiratory normal respiratory effort, lungs clear to auscultation Cardiovascular RRR, no murmur, no edema Gastrointestinal (Abdomen) normal bowel sounds, soft, nontender, no hepatosplenomegaly Musculoskeletal no cyanosis or clubbing, extremities motor strength 5/5 Neurologic PERRL, EOMI, accommodation nl, no face palsy, no dysarthria Psychiatric A+Ox3, euthymic affect Discharge Data Allergies Allergy/AdvReac Type Severity Reaction Status Date / Time Penicillins Allergy Rash Verified 06/14/21 22:23 Consultations 06/15/21 08:00 Consult Cardiology Routine Ordered Studies 06/15/21 10:45 US duplex renal artery Routine The right kidney measures 11 cm in length. No shadowing right-sided renal c alculi. Peak systolic velocities within the right renal artery measure up to 120 cm/s with resistive indices measuring up to 0.71. 6 mm calculus within the interpolar left kidney. No hydronephrosis. Peak systolic velocities within the left renal artery measure up to 81 cm/s with resistive indices measuring up to 0.72. Left renal artery is suboptimally visualized. Normal plug flow within the abdominal aorta with peak systolic velocities measuring up to 108 cm/s. IMPRESSION: No evidence of renal artery stenosis. 06/15/21 18:48 CT head/brain wo con Urgent Brain parenchyma: The brain parenchyma is normal in appearance. There is no hemorrhage, mass effect, or evidence of acute territorial ischemia by CT criteria. Cortes-white matter differentiation is preserved. No extra-axial fluid collection is seen. Ventricles, sulci, cisterns: Normal in configuration. Intracranial vasculature: The visualized intracranial vasculature at the skull base is normal in appearance. Calvarium: Unremarkable. Sinuses and mastoids: The visualized paranasal sinuses are clear. The mastoid air cells are well pneumatized. Orbits: The bony orbits are grossly intact. IMPRESSION: No acute intracranial abnormality. Hospital Course (1) Chest pain: (2) Hypertensive urgency: (3) Headache: Patient presented with chest pain. BP on presentation was 202/110 EKG did not show any ischemic changes. Troponins were negative. Patient was started on amlodipine. Patient was evaluated by Cardiology. Echo cardiogram showed normal wall motion with concentric LVH Chest pain resolved Blood pressure improved to 143/94 today Patient advised to follow up with PCP Patient needs to follow up with Cardiology in 2 weeks for evaluation and consideration for stress testing at the time. Total Time Total Time Spent Total Time Spent (In Minutes): 40 Total Time Includes: Examination of the Patient, Discharge Planning, Medication Reconciliation and Communication With Other Providers Discharge Plan Discharge Items Patient Disposition: Home - Self-Care Reason For Visit: CHEST PAIN Discharge Diagnosis: Chest pain Hypertension, poorly controlled Activity: Resume your previous activity Non-emergency contact: Primary Care Provider Call non-emergency contact if: you have any medication questions and your symptoms worsen Follow-up/Referrals: Preston Fernandez DO [Primary Care Provider] - (Date & Time 06/20/2021 12:00 PM Provider Preston Fernandez DO Department [facility] ) Diet: Heart Healthy Addtl Attending Provider Instructions: Ms Arguello. You came to the hospital complaining of chest pain. You were evaluated and noted to have significantly elevated blood pressure. Work up did not show any heart attack. You were started on amlodipine for better blood pressure control. Please ensure you continue to take this and follow up with your Primary Doctor who will continue to adjust meds as needed. You can use tylenol as needed for headache. It was a pleasure taking care of you. Pending Studies at Discharge: No Stand-Alone Forms: My [facility] miCab, Smoking Cessation Medications and DC Order Prescriptions: New acetaminophen [Tylenol] 325 mg capsule 650 mg PO Q6H PRN (Reason: headache) Qty: 60 RF: 0 amlodipine 10 mg tablet 10 mg PO DAILY Qty: 30 RF: 0 Continued omeprazole 40 mg Capsule,Delayed Release(Dr/Ec) 40 mg PO DAILY RF: 0 Discontinued ibuprofen 200 mg Tablet 600 mg PO Q6H PRN (Reason: Pain) RF: 0 Discharge Orders: Discharge Order (Routine); Ordered 06/16/21 Ordered By: Kianna Jimenez Admission Data Admit Date/Time: 06/15/21 01:54 Attending Provider: Kianna Jimenez I. Admit Provider: Kennedy Borges Primary Care Provider: Preston Fernandez Other Providers: Gilbert Bonilla ; Andriy Scott ; Diallo Ly ; Raj Hoskins ; Gagan Lizarraga ; Kyrie Morocho ; Farida Robertson ; Myrna Bazzi ; Melinda Dent ; Kosta Edwards Other Interventions: Discharge Summary Assessment (RN) Last Done: 06/16/21 11:27
[2021-06-17] MEDS ORDERED: amLODIPine BESYLATE 5 MG TAB PO SCH (09:00)
== END 2021-06-16 13:19 | disposition home or self-care (01) ==
LOC: 2N 21:30 → ED 21:30 → 2N 06-15 02:28
DX: Z79.899 Other long term (current) drug therapy; Z88.0 Allergy status to penicillin; I10 Essential (primary) hypertension; R07.89 Other chest pain

== ENCOUNTER 2022-03-26 18:04 | Observation (INO) ==
[2022-03-26] MEDS ORDERED: SODIUM CHLORIDE 0.9% 1000ML 500 ML IV ONE (18:21)
[2022-03-26 18:29] LABS: Basophils # (auto) 0.04 K/uL (0-0.2); Basophils % (auto) 0.5 %; Eosinophils # (auto) 0.03 K/uL (0-0.50); Eosinophils % (auto) 0.4 %; Hematocrit (blood only) 40.2 % (34.1-44.9); Hemoglobin 14.1 g/dl (12.0-16.0); Immature Granulocytes # (auto) 0.02 K/uL (0.00-0.02); Immature Granulocytes % (auto) 0.2 %; Lymphocytes # (auto) 1.92 K/uL (1.2-3.4); Lymphocytes % (auto) 23.7 %; Mean Corpuscular Hemoglobin 30.9 pg (25.0-34.0); Mean Corpuscular Hgb Conc 35.1 g/dL (32.0-36.0); Mean Corpuscular Volume 88.2 fL (80.0-100.0); Mean Platelet Volume 8.9 fL (9.4-12.3); Monocytes # (auto) 0.68 K/uL (0.24-0.82); Monocytes % (auto) 8.4 %; Neutrophils # (auto) 5.42 K/uL (1.4-6.5); Neutrophils % (auto) 66.8 %; Platelet Count 298 K/uL (130-400); RDW Coefficient of Variation 13.3 % (11.5-14.5); RDW Standard Deviation 43.1 fL (36.4-46.3); Red Blood Count 4.56 M/uL (3.93-5.22); White Blood Count 8.11 K/ul (4.8-10.8)
[2022-03-26] MEDS ORDERED: NITROGLYCERIN 2% OINTMENT 30GM TUBE EXT STA (18:29)
[2022-03-26] MEDS ORDERED: ONDANSETRON INJ 2 MG/ML 2 ML VIAL IV STA (18:29)
[2022-03-26] MEDS ORDERED: HYDROmorphone INJ 0.5 MG/0.5 ML SYR IV STA ×2 (18:29→21:28)
[2022-03-26] MEDS ORDERED: ASPIRIN CHEW 324 MG PO STA (18:29)
[2022-03-26 18:39] LABS: D Dimer < 190 ug/L FEU (0-500)
[2022-03-26 18:42] LABS: Pregnancy Test, Serum Negative (Negative)
--- NOTE | 2022-03-26 18:45 | Emergency Department Note ---
Impression & Plan Retrosternal chest pain, Severe hypertension ED Provider Note INFORMANT: Patient ED PROVIDER(S): Scott Paredes MD CHIEF COMPLAINT: Chest pain PLAN: Disposition: Admitted Condition: Good Outpatient prescription management: none Referral: None MEDICAL DECISION MAKING: Patient was evaluated upon arrival. She was complaining of significant pain and had tachycardia and severe hypertension. Her ECG showed slight inferior ST abnormality. She was treated with aspirin and Nitropaste. The patient was also given Dilaudid and Zofran. She felt marginally better even though her blood pressure was better controlled. Patient was very anxious and having intermittent fluctuations in her pain. The patient was given a dose of Ativan. Her CBC and chemistry panels were unremarkable. Troponin and D-dimer were negative. Patient was still having some intermittent discomfort and was given additional dose of Dilaudid. Because of her vital signs and symptoms further management in the hospital was felt to be appropriate. The patient was in agreement. [facility] I discussed the case with . Patient was evaluated in the ER and admitted for further management. After review of the information above and other included data, I feel the patient requires admission. Triage Nursing notes reviewed and agree them. Vital Signs: reviewed and remarkable for tachycardia and severe hypertension Prior /Outside records reviewed: none Differential diagnosis: Cardiac ischemia, aortic dissection, pulmonary embolism, pneumothorax, pneumonia, pericarditis, myocarditis, esophageal rupture, GERD, cholecystitis, pancreatitis, musculoskeletal, as well as other pathologies. Diagnostics, as interpreted by me: ECG: Twelve-lead ECG reveals a sinus tachycardia 110 bpm. There is mild inferior ST depression. No T wave inversions. No ST elevation. No PVCs. Cardiac Monitoring: Cardiac monitoring ordered by me: The patient was placed on continuous cardiac monitoring and observed. It revealed a sinus tachycardic rhythm at 122 beats per minute without ectopy or evidence of dysrhythmia. Medical decision rules: none Imaging studies: Chest x-ray. Findings: A chest x-ray was performed and revealed no pneumothorax, effusion, infiltrate, pulmonary edema, free air under the diaphragm, or wide mediastinum. Impression: No acute disease. HPI: The patient is a 47year old female who presents to the Emergency Room with complaints of midsternal chest pain. This started about 20 minutes prior to arrival and is persisting. The patient also notes the following associated symptoms, pain radiating to the left shoulder. The patient has tried Prilosec for relieving factors. Current pain is rated as 6/10. Patient has a history of hypertension. Denies smoking. Pt denies LOC, headache, fevers, chills, diaphoresis, visual changes, neck pain, breathing difficulties, nausea, vomiting, abdominal pain, back pain, melena, hematochezia, urinary symptoms, numbness, weakness, lymphadenopathy, rash, or other complaints. PAST MEDICAL HISTORY: See Below, hypertension, GERD PAST SURGICAL HISTORY: See Below, SOCIAL HISTORY: See Below, non-smoker HOME MEDICATIONS: See Below ALLERGIES: See Below VITALS: See Below PHYSICAL EXAMINATION: GENERAL: Awake, alert, very uncomfortable-appearing, in moderate distress HENT: Normocephalic, atraumatic. Oropharynx unremarkable. EYES: Normal conjunctiva. Sclera non-icteric. NECK: Inspection normal. Non-tender. Supple. No nuchal rigidity. FROM. No masses. RESPIRATORY: Clear to auscultation. No wheezes. No rales. Increased respiratory effort. CARDIAC: Tachycardic rate. Normal rhythm. No murmurs. No rubs. Extremities warm and well perfused. Pulses equal. No JVD. GI: Soft, non-distended. No tenderness to palpation. No rebound or guarding. No masses. RECTAL: Deferred. MUSCULOSKELETAL: Atraumatic. Chest examination reveals no tenderness. The back is symmetrical on inspection without obvious abnormality. There is no CVA tenderness to palpation. No joint edema. LOWER EXTREMITIES: Calves are equal size bilaterally and non-tender. No edema. No discoloration. NEURO: Normal sensorium. No sensory or motor deficits noted. SKIN: No rash or jaundice noted. Past Med/Surg History Social History Smoking Status: Never smoker Second Hand Exposure: No; Hx Alcohol Use: Yes Alcohol type: beer Hx Substance Use: No Preferred Language: Telugu Communication Ability: Effective Costumed Character Required: No Beliefs That Will Affect Care: None Current Living Situation: Spouse Feels Safe at Home: Yes Assistive Devices: None Allergies Allergies Allergy/AdvReac Type Severity Reaction Status Date / Time Penicillins Allergy Intermediate Rash Verified 03/26/22 19:18 Home Meds Home Medications Medication Instructions Recorded Confirmed omeprazole 40 mg capsule,delayed 40 mg PO DAILY 06/14/21 03/26/22 release hydrochlorothiazide 12.5 mg capsule 12.5 mg PO DAILY 03/26/22 03/26/22 Previous Rx's Medication Instructions Recorded acetaminophen 325 mg capsule 650 mg PO Q6H PRN headache #60 caps 06/16/21 (Tylenol) amlodipine 10 mg tablet 10 mg PO DAILY #30 tabs 06/16/21 Results & Data (ED) Vital Signs Vital Signs - 24 hr 03/26/22 18:08 03/26/22 18:46 03/26/22 18:46 Temperature 36.8 C 37.6 C H Temperature Source Temporal Artery Scan Oral Pulse Rate 122 H 130 H Pulse Rate [Right Finger] 130 H Respiratory Rate 22 25 H 25 H Respiratory Effort / Characteristics Non-Labored Spontaneous Respiratory Depth Shallow Normal Respiratory Pattern Rapid/Shallow Tachypnea Blood Pressure 179/95 H Blood Pressure [Right Arm] 178/104 H Blood Pressure Mean 123 Blood Pressure Mean [Right Arm] 128 Pulse Oximetry 99 100 100 Oxygen Delivery Method Room Air Room Air Room Air Sepsis Recent Fever Within 48 Hours No Sepsis New/Unexplained Change in Mental Status No Sepsis Action Taken by Nursing No Action Required 03/26/22 18:30 03/26/22 18:39 03/26/22 18:39 Temperature Temperature Source Pulse Rate 130 H 110 H Pulse Rate [Right Finger] Respiratory Rate 29 H 25 H Respiratory Effort / Characteristics Respiratory Depth Respiratory Pattern Blood Pressure 164/94 H Blood Pressure [Right Arm] Blood Pressure Mean 117 Blood Pressure Mean [Right Arm] Pulse Oximetry 100 96 Oxygen Delivery Method Sepsis Recent Fever Within 48 Hours Sepsis New/Unexplained Change in Mental Status Sepsis Action Taken by Nursing 03/26/22 19:03 03/26/22 19:47 03/26/22 19:15 Temperature Temperature Source Pulse Rate 103 H 99 H Pulse Rate [Right Finger] Respiratory Rate 22 22 Respiratory Effort / Characteristics Respiratory Depth Respiratory Pattern Blood Pressure 132/94 Blood Pressure [Right Arm] Blood Pressure Mean 106 Blood Pressure Mean [Right Arm] Pulse Oximetry 98 100 100 Oxygen Delivery Method Room Air Room Air Room Air Sepsis Recent Fever Within 48 Hours Sepsis New/Unexplained Change in Mental Status Sepsis Action Taken by Nursing 03/26/22 19:30 03/26/22 19:30 03/26/22 19:41 Temperature Temperature Source Pulse Rate 96 H Pulse Rate [Right Finger] Respiratory Rate 20 Respiratory Effort / Characteristics Respiratory Depth Respiratory Pattern Blood Pressure 147/86 H 143/92 H Blood Pressure [Right Arm] Blood Pressure Mean 106 109 Blood Pressure Mean [Right Arm] Pulse Oximetry 99 Oxygen Delivery Method Room Air Sepsis Recent Fever Within 48 Hours Sepsis New/Unexplained Change in Mental Status Sepsis Action Taken by Nursing 03/26/22 19:41 03/26/22 19:45 03/26/22 20:00 Temperature Temperature Source Pulse Rate 119 H 99 H 97 H Pulse Rate [Right Finger] Respiratory Rate 20 15 17 Respiratory Effort / Characteristics Respiratory Depth Respiratory Pattern Blood Pressure 130/85 Blood Pressure [Right Arm] Blood Pressure Mean 100 Blood Pressure Mean [Right Arm] Pulse Oximetry 100 100 95 Oxygen Delivery Method Room Air Room Air Room Air Sepsis Recent Fever Within 48 Hours Sepsis New/Unexplained Change in Mental Status Sepsis Action Taken by Nursing 03/26/22 20:15 03/26/22 20:30 03/26/22 20:45 Temperature Temperature Source Pulse Rate 117 H 91 H 113 H Pulse Rate [Right Finger] Respiratory Rate 17 17 22 Respiratory Effort / Characteristics Respiratory Depth Respiratory Pattern Blood Pressure 119/95 Blood Pressure [Right Arm] Blood Pressure Mean 103 Blood Pressure Mean [Right Arm] Pulse Oximetry 99 100 100 Oxygen Delivery Method Room Air Room Air Room Air Sepsis Recent Fever Within 48 Hours Sepsis New/Unexplained Change in Mental Status Sepsis Action Taken by Nursing 03/26/22 23:20 03/26/22 21:00 03/26/22 21:15 Temperature Temperature Source Pulse Rate 97 H 113 H Pulse Rate [Right Finger] Respiratory Rate 21 17 Respiratory Effort / Characteristics Respiratory Depth Respiratory Pattern Blood Pressure 118/84 Blood Pressure [Right Arm] Blood Pressure Mean 95 Blood Pressure Mean [Right Arm] Pulse Oximetry 97 97 Oxygen Delivery Method Room Air Room Air Room Air Sepsis Recent Fever Within 48 Hours Sepsis New/Unexplained Change in Mental Status Sepsis Action Taken by Nursing 03/26/22 21:30 03/26/22 21:45 03/26/22 22:00 Temperature Temperature Source Pulse Rate 100 H 108 H 110 H Pulse Rate [Right Finger] Respiratory Rate 15 17 15 Respiratory Effort / Characteristics Respiratory Depth Respiratory Pattern Blood Pressure 143/84 H Blood Pressure [Right Arm] Blood Pressure Mean 103 Blood Pressure Mean [Right Arm] Pulse Oximetry 98 97 99 Oxygen Delivery Method Room Air Room Air Room Air Sepsis Recent Fever Within 48 Hours Sepsis New/Unexplained Change in Mental Status Sepsis Action Taken by Nursing 03/26/22 22:01 03/26/22 22:15 03/26/22 22:30 Temperature Temperature Source Pulse Rate 131 H 102 H 107 H Pulse Rate [Right Finger] Respiratory Rate 22 19 16 Respiratory Effort / Characteristics Respiratory Depth Respiratory Pattern Blood Pressure 141/110 H 141/87 H Blood Pressure [Right Arm] Blood Pressure Mean 120 105 Blood Pressure Mean [Right Arm] Pulse Oximetry 100 97 97 Oxygen Delivery Method Room Air Room Air Room Air Sepsis Recent Fever Within 48 Hours Sepsis New/Unexplained Change in Mental Status Sepsis Action Taken by Nursing 03/26/22 22:45 Temperature Temperature Source Pulse Rate 106 H Pulse Rate [Right Finger] Respiratory Rate 20 Respiratory Effort / Characteristics Respiratory Depth Respiratory Pattern Blood Pressure Blood Pressure [Right Arm] Blood Pressure Mean Blood Pressure Mean [Right Arm] Pulse Oximetry 96 Oxygen Delivery Method Room Air Sepsis Recent Fever Within 48 Hours Sepsis New/Unexplained Change in Mental Status Sepsis Action Taken by Nursing Laboratory Data 03/26/22 18:19 03/26/22 18:19 Lab Results 03/26/22 03/26/22 03/26/22 Range/Units 18:19 18:19 18:19 WBC 8.11 (4.8-10.8) K/ul RBC 4.56 (3.93-5.22) M/uL Hgb 14.1 (12.0-16.0) g/dl Hct 40.2 (34.1-44.9) % MCV 88.2 (80.0-100.0) fL MCH 30.9 (25.0-34.0) pg MCHC 35.1 (32.0-36.0) g/dL RDW Std Deviation 43.1 (36.4-46.3) fL RDW Coeff of Maryanne 13.3 (11.5-14.5) % Plt Count 298 (130-400) K/uL MPV 8.9 L (9.4-12.3) fL Immature Gran % (Auto) 0.2 % Neut % (Auto) 66.8 % Lymph % (Auto) 23.7 % Swift % (Auto) 8.4 % Eos % (Auto) 0.4 % Baso % (Auto) 0.5 % Neut # (Auto) 5.42 (1.4-6.5) K/uL Lymph # (Auto) 1.92 (1.2-3.4) K/uL Swift # (Auto) 0.68 (0.24-0.82) K/uL Eos # (Auto) 0.03 (0-0.50) K/uL Baso # (Auto) 0.04 (0-0.2) K/uL Immature Gran # (Auto) 0.02 (0.00-0.02) K/uL D-Dimer < 190 (0-500) ug/L FEU Sodium (136-145) mmol/L Potassium (3.5-5.1) mmol/L Chloride (98-107) mmol/L Carbon Dioxide (21-32) mmol/L Anion Gap (3-11) BUN (6-23) mg/dl Creatinine (0.6-1.2) mg/dl Est Cr Clr Drug Dosing ml/min Est GFR ( Amer) ml/min Est GFR (Non-Af Amer) ml/min BUN/Creatinine Ratio (10-20) Glucose (70-99(Fasting)) mg/dl Calcium (8.5-10.1) mg/dl Total Bilirubin (0.2-1.0) mg/dl AST (13-39) U/L ALT (7-52) U/L Alkaline Phosphatase (34-104) U/L Troponin I High Sens (0-14) pg/ml Total Protein (6.0-8.3) gm/dl Albumin (3.4-5.0) gm/dl Globulin (2.5-4.0) gm/dl Albumin/Globulin Ratio (0.9-2) Lipase (11-82) U/L HCG, Qual Negative (Negative) SARS-CoV-2, RNA, NAAT (NEGATIVE) 03/26/22 03/26/22 Range/Units 18:19 21:00 WBC (4.8-10.8) K/ul RBC (3.93-5.22) M/uL Hgb (12.0-16.0) g/dl Hct (34.1-44.9) % MCV (80.0-100.0) fL MCH (25.0-34.0) pg MCHC (32.0-36.0) g/dL RDW Std Deviation (36.4-46.3) fL RDW Coeff of Maryanne (11.5-14.5) % Plt Count (130-400) K/uL MPV (9.4-12.3) fL Immature Gran % (Auto) % Neut % (Auto) % Lymph % (Auto) % Swift % (Auto) % Eos % (Auto) % Baso % (Auto) % Neut # (Auto) (1.4-6.5) K/uL Lymph # (Auto) (1.2-3.4) K/uL Swift # (Auto) (0.24-0.82) K/uL Eos # (Auto) (0-0.50) K/uL Baso # (Auto) (0-0.2) K/uL Immature Gran # (Auto) (0.00-0.02) K/uL D-Dimer (0-500) ug/L FEU Sodium 136 (136-145) mmol/L Potassium 2.8 L (3.5-5.1) mmol/L Chloride 97 L (98-107) mmol/L Carbon Dioxide 26 (21-32) mmol/L Anion Gap 13 H (3-11) BUN 14 (6-23) mg/dl Creatinine 0.87 (0.6-1.2) mg/dl Est Cr Clr Drug Dosing 72.3 ml/min Est GFR ( Amer) 92.6 ml/min Est GFR (Non-Af Amer) 79.9 ml/min BUN/Creatinine Ratio 16.1 (10-20) Glucose 103 H (70-99(Fasting)) mg/dl Calcium 10.0 (8.5-10.1) mg/dl Total Bilirubin 0.5 (0.2-1.0) mg/dl AST 16 (13-39) U/L ALT 8 (7-52) U/L Alkaline Phosphatase 50 (34-104) U/L Troponin I High Sens 3.3 (0-14) pg/ml Total Protein 8.0 (6.0-8.3) gm/dl Albumin 4.6 (3.4-5.0) gm/dl Globulin 3.4 (2.5-4.0) gm/dl Albumin/Globulin Ratio 1.4 (0.9-2) Lipase 31 (11-82) U/L HCG, Qual (Negative) SARS-CoV-2, RNA, NAAT NEGATIVE (NEGATIVE) Administered Medications Discontinued Medications Aspirin (Aspirin Chew 324 Mg) 324 mg PO NOW STA Stop: 03/26/22 18:30 Last Admin: 03/26/22 18:35 Dose: 324 mg Documented By: CHRISTIANE Hydromorphone HCl (Hydromorphone Inj 0.5 Mg/0.5 Ml Syr) 0.5 mg IV NOW STA Stop: 03/26/22 18:30 Last Admin: 03/26/22 18:35 Dose: 0.5 mg Documented By: CHRISTIANE Hydromorphone HCl (Hydromorphone Inj 0.5 Mg/0.5 Ml Syr) 0.5 mg IV NOW STA Stop: 03/26/22 21:29 Last Admin: 03/26/22 22:25 Dose: 0.5 mg Documented By: JARETT Sodium Chloride (Nss 1000ml) 500 mls @ 999 mls/hr IV .Q31M ONE Stop: 03/26/22 18:51 Last Infusion: 03/26/22 19:07 Dose: 0 mls/hr Documented By: Admin: 03/26/22 18:28 Dose: 999 mls/hr Documented By: CHRISTIANE Potassium Chloride (K Jean / Wtr) 10 meq in 100 mls @ 100 mls/hr IV ONE ONE; Protocol Stop: 03/26/22 21:48 Last Infusion: 03/26/22 22:10 Dose: 0 mls/hr Documented By: Admin: 03/26/22 21:01 Dose: 100 mls/hr Documented By: JARETT Lorazepam (Lorazepam 1 Mg Tab) 1 mg SL NOW STA Stop: 03/26/22 19:15 Last Admin: 03/26/22 19:19 Dose: 1 mg Documented By: JARETT Nitroglycerin (Nitroglycerin 2% Ointment 30gm Tube) 0.5 inch EXT NOW STA Stop: 03/26/22 18:30 Last Admin: 03/26/22 18:36 Dose: 0.5 inch Documented By: CHRISTIANE Ondansetron HCl (Ondansetron Inj 2 Mg/Ml 2 Ml Vial) 4 mg IV NOW STA Stop: 03/26/22 18:30 Last Admin: 03/26/22 18:36 Dose: 4 mg Documented By: CHRISTIANE Imaging Data Radiologist's Impression: Chest X-Ray 03/26/22 18:21 XR chest 1V portable HISTORY: 47 years-old Female Chest pain, midsternal acute chest pain COMPARISON: Chest radiograph 06/14/2021 TECHNIQUE: AP view of the chest FINDINGS: Cardiomediastinal and hilar silhouettes are within normal limits. No pneumothorax, pleural effusion, airspace consolidation or pulmonary edema. Bones appear grossly intact. IMPRESSION: No acute process. ACT 112: Negative or not required by law. The above report was generated using voice recognition software. It may contain grammatical, syntax or spelling errors. Electronically signed by: Bharath Kee M.D. 03/26/2022 6:59 PM Discharge Plan Visit Data Chief Complaint: Chest Pain Stated Complaint: CHEST PAIN, HIGH BLOOD PRESSURE (158/100) ED Provider: Scott Paredes Discharge Problem: Retrosternal chest pain, Severe hypertension Patient Disposition: Admitted As Inpatient Discharge Instructions Interventions: ED Discharge Assessment Last Done: 03/26/22 23:20 Forms Stand Alone Forms: [facility] Prescriptions Prescriptions: No Action omeprazole 40 mg Capsule,Delayed Release(Dr/Ec) 40 mg PO DAILY acetaminophen [Tylenol] 325 mg capsule 650 mg PO Q6H PRN (Reason: headache) Qty: 60 0RF amlodipine 10 mg tablet 10 mg PO DAILY Qty: 30 0RF hydrochlorothiazide 12.5 mg capsule 12.5 mg PO DAILY Referrals Referrals: Preston Fernandez DO [Primary Care Provider] -
[2022-03-26 18:54] LABS: Troponin I High Sensitivity 3.3 pg/ml (0-14)
--- NOTE | 2022-03-26 19:01 | XRay Report ---
XR chest 1V portable HISTORY: 47 years-old Female Chest pain, midsternal acute chest pain COMPARISON: Chest radiograph 06/14/2021 TECHNIQUE: AP view of the chest FINDINGS: Cardiomediastinal and hilar silhouettes are within normal limits. No pneumothorax, pleural effusion, airspace consolidation or pulmonary edema. Bones appear grossly intact. IMPRESSION: No acute process. ACT 112: Negative or not required by law. The above report was generated using voice recognition software. It may contain grammatical, syntax o r spelling errors. Electronically signed by: Bharath Kee M.D. 03/26/2022 6:59 PM
[2022-03-26] MEDS ORDERED: LORazepam 1 MG TAB SL STA (19:14)
[2022-03-26 19:17] LABS: Albumin Globulin Ratio 1.4 (0.9-2); Albumin Level 4.6 gm/dl (3.4-5.0); BUN Creatinine Ratio 16.1 (10-20); Bilirubin,Total 0.5 mg/dl (0.2-1.0); Creatinine Clr Calc Pharmacy 72.3 ml/min; Est GFR (African American) 92.6 ml/min; Est GFR (Non-African American) 79.9 ml/min; Globulin 3.4 gm/dl (2.5-4.0); Potassium 2.8 mmol/L (3.5-5.1)
[2022-03-26] MEDS ORDERED: POTASSIUM CHLORIDE / WTR 10 MEQ/100 ML PLCT IV ONE (20:49)
[2022-03-26] MEDS ORDERED: POLYETHYLENE (MIRALAX) 17 GM PACK PO PRN (23:49)
[2022-03-26] MEDS ORDERED: NITROGLYCERIN SL 0.4 MG/TAB TAB SL PRN (23:49)
[2022-03-26] MEDS ORDERED: MoRPHine SULFATE 2 MG/ML CARP IV PRN (23:49)
[2022-03-26] MEDS ORDERED: ALUMINUM/MAGNESIUM SUSP 18 ML, LIDOCAINE VISCOUS 2% SOLN 6 ML, BARCODE IDENTIFIER 1 EACH PO ONE (23:55)
--- NOTE | 2022-03-27 00:24 | History and Physical Report ---
DATE OF ADMISSION: 03/26/2022. CHIEF COMPLAINT: Chest pain. HISTORY OF PRESENT ILLNESS: This 47-year-old female with past medical history significant for hypertension, GERD, presents with chest pain that started today evening, pressure-like feeling about 5-6 in severity and occasional sharp pains left to chest, 910 in severity. She also has some left shoulder pain about 2/10 in severity.Whenever she takes deep breath, there is no pain, but feels different. Some nausea. No headache, no dizziness, no blurred vision, no earache, no runny nose, no sore throat, no cough, no difficulty swallowing. Appetite is okay. Currently, when the pain is severe, she feels short of breath. No abdominal pain. Normal bowel and bladder movements. No hematuria, no blood in the stools. No swelling in the legs. Otherwise, before this, she was ambulating fine. Nonsmoker. No family history of heart disease. The patient states she was in the hospital in June 2021 with a similar problem. At that time, she was found to have hypertensive urgency, elevated blood pressure and said when her blood pressure was controlled, the chest pain improved. She checks her blood pressure regularly at home and it usually it ranges in 120/80 range. Once a while it goes in 130/90s. After June, this is second time it happened. ALLERGIES: PENICILLINS. PAST MEDICAL HISTORY: As mentioned above. PAST SURGICAL HISTORY: Biopsy of breast, colonoscopy, excision of the breast lesion. MEDICATIONS: The patient is on Tylenol 650 mg p.o. q. 6 hours p.r.n., amlodipine 10 mg p.o. daily, hydrochlorothiazide 12.5 mg p.o. daily, omeprazole 40 mg p.o. daily. FAMILY HISTORY: Significant for maternal grandmother with breast cancer. SOCIAL HISTORY: No smoking. Alcohol, social drinking. No drugs. REVIEW OF SYSTEMS: As per HPI. Rest of review of systems is negative. PHYSICAL EXAMINATION: GENERAL: The patient is of moderate build, not in acute distress. VITAL SIGNS: Temperature 37.6, pulse 113, respirations 22, blood pressure 119/93, oxygen 100% on room air. HEENT: Pupils equal, round and reactive to light. Oral mucosa moist. NECK: No JVD, no neck masses. CARDIOVASCULAR: S1 and S2 heard. Regular rate and rhythm. No murmur, no gallop. RESPIRATORY SYSTEM: Normal AP diameter. No accessory muscle use. No wheezing, no crackles. ABDOMEN: Soft, bowel sounds present, nontender, no distention. CENTRAL NERVOUS SYSTEM: Cranial nerves II-XII grossly intact, nonfocal. EXTREMITIES: No edema, no erythema. LABORATORY DATA: WBC 8.1, hemoglobin 14.1, hematocrit 40.2, platelets 298. D- dimer less than 190. Sodium 136, potassium 2.8, chloride 97, bicarbonate 26, BUN 13, creatinine 0.8, serum glucose 103, calcium 10, total bilirubin 0.5, AST 16, ALT 18, alkaline phosphatase 50. Troponin I high sensitivity 3.3. Lipase 31. HCG qualitative negative. SARS-CoV-2 rapid test negative. IMAGING DATA: Chest x-ray, no acute process. EKG: Sinus tachycardia at a rate of 110, some mild questionable ST depression in lateral leads. Nonspecific T-wave abnormalities. ASSESSMENT AND PLAN: This is a 47-year-old female who presents with chest pain. The patient had a similar presentation in June from hypertensive urgency. Today when she came, the blood pressure was 179/95. 1. Chest pain: Rule out acute coronary syndrome. Could be hypertensive urgency. ER placed on nitroglycerin, will be continued The patient received aspirin, Dilaudid couple of times, Ativan and nitroglycerin paste, Zofran in the ER, but still is having chest pain. She seems to be little bit anxious, also. Initial cardiac workup is unremarkable. We will observe in tele floor, n.p.o. Serial cardiac enzymes, echocardiogram. Continue the nitroglycerin paste. Continue aspirin, IV morphine p.r.n. Consult Cardiology in the a.m. for further recommendation. D-dimer exam is unremarkable. 2. Hypertension. Continue home medication amlodipine and hydrochlorothiazide, current nitroglycerin paste. We will monitor the blood pressure. 3. Gastroesophageal reflux disease: Continue omeprazole. We will give GI cocktail. 4. Deep venous thrombosis prophylaxis: Sequential compression devices for now. DISPOSITION: Closely monitor in the observation tele floor. Level 1 full code. Expect to discharge home and follow with family doctor. Job ID: [id number] [facility]
[2022-03-27] MEDS: NITROGLYCERIN 2% OINTMENT 30GM TUBE EXT SCH ×2 (00:39→06:36)
[2022-03-27 06:20] LABS: Basophils # (auto) 0.04 K/uL (0-0.2); Basophils % (auto) 0.6 %; Eosinophils # (auto) 0.22 K/uL (0-0.50); Eosinophils % (auto) 3.3 %; Hematocrit (blood only) 35.5 % (34.1-44.9); Hemoglobin 12.2 g/dl (12.0-16.0); Immature Granulocytes # (auto) 0.01 K/uL (0.00-0.02); Immature Granulocytes % (auto) 0.2 %; Lymphocytes # (auto) 1.48 K/uL (1.2-3.4); Lymphocytes % (auto) 22.4 %; Mean Corpuscular Hemoglobin 30.4 pg (25.0-34.0); Mean Corpuscular Hgb Conc 34.4 g/dL (32.0-36.0); Mean Corpuscular Volume 88.5 fL (80.0-100.0); Mean Platelet Volume 8.9 fL (9.4-12.3); Monocytes # (auto) 0.67 K/uL (0.24-0.82); Monocytes % (auto) 10.2 %; Neutrophils # (auto) 4.18 K/uL (1.4-6.5); Neutrophils % (auto) 63.3 %; Platelet Count 260 K/uL (130-400); RDW Coefficient of Variation 13.2 % (11.5-14.5); RDW Standard Deviation 43.5 fL (36.4-46.3); Red Blood Count 4.01 M/uL (3.93-5.22)
[2022-03-27 06:44] LABS: BUN Creatinine Ratio 16.9 (10-20); Calcium 8.7 mg/dl (8.5-10.1); Creatinine Clr Calc Pharmacy 87.7 ml/min; Est GFR (African American) 118.4 ml/min; Est GFR (Non-African American) 102.1 ml/min; Magnesium 1.8 mg/dl (1.7-2.4)
[2022-03-27] MEDS ORDERED: POTASSIUM CHLORIDE CRTAB 20 MEQ TABCR PO STA (08:44)
[2022-03-27] MEDS ORDERED: hydroCHLOROthiazide 25 MG TAB PO SCH (09:00)
[2022-03-27] MEDS ORDERED: PANTOprazole 40 MG TAB PO SCH ×2 (09:00→14:00)
[2022-03-27] MEDS ORDERED: amLODIPine BESYLATE 5 MG TAB PO SCH (09:00)
[2022-03-27] MEDS ORDERED: ASPIRIN 81 MG ECTAB PO SCH (09:00)
--- NOTE | 2022-03-27 09:52 | Electrocardiogram Report ---
Test Reason : Blood Pressure : / mmHG Vent. Rate : 110 BPM Atrial Rate : 110 BPM P-R Int : 114 ms QRS Dur : 080 ms QT Int : 316 ms P-R-T Axes : 044 040 -03 degrees QTc Int : 427 ms Poor data quality, interpretation may be adversely affected Sinus tachycardia Abnormal ECG When compared with ECG of 16-JUN-2021 06:30, ST now depressed in Lateral leads Nonspecific T wave abnormality now evident in Anterior leads Confirmed by Rajendra Stephenson ([id number]) on 03/27/2022 9:51:55 AM Referred By: REFERRED SELF Confirmed By:Kishan Stephenson
--- NOTE | 2022-03-27 10:20 | Cardiology Consultation ---
Date of Consultation March 27, 2022 Assessment & Plan (1) Hypertensive urgency: Similar to presentation in June 2021. D-Dimer negative. Blood pressure 179/95, improved with additional of nitro paste though with resultant headache. Discontinue nitro paste. Add Losartan. Continue amlodipine and HCTZ. ? Future trial of spironolactone. (2) Retrosternal chest pain: Atypical. EKG with sinus tachycardia with diffuse ST-T wave abnormality. High sensitivity troponin negative x 2. Await 3rd Troponin and resting echocardiography, considering repeat stress testing versus outpatient Cardiac CT.. (3) Hypokalemia: Supplement potassium orally Plan I have seen and examined the patient. I reviewed the medical record and discussed the case with Mr. Morocho. I agree with the plan as outlined. The patient's third cardiac troponin is negative. She has nonspecific findings on her EKG. Echocardiogram was unremarkable. The patient had similar chest pain last year and had a negative stress test. At this point I think the best option is coronary cardiac CT with FFR if indicated. I will arrange that as an outpatient. I think the patient can be discharged from the hospital. 1 final thought, is to send the patient home on Protonix. She does have a history of reflux and has been on omeprazole which does not seem to be effective. We will follow her up as an outpatient. History of Present Illness Reason for Consultation: Chest pain Requesting Physician: Sherrie Attending Physician: Alberto History of Present Illness Sheela Arguello is a 47 year old female who is being seen at the request of Dr. Borges. Reason for consultation is chest pain. Last night, at 5:30 PM, she was making dinner. All of a sudden, she experienced bad chest pain that she describes as a really tight pressure, 5 out of 10, associated with random stabbing 10 out of 10 sharp pain that would come and go, eventually steadily going back to just the regular tightness. She notes that her pulse was racing in her throat. BP and heart rate at home were 158/1010 and 117 bpm respectively. + Mild nausea. No aggravating or alleviating factors. Symptoms continued on to presentation to the ER. EKG on presentation was poor in quality, revealing sinus tachycardia at [address] & T wave abnormality interiorly and laterally, nonspecific T wave abnormality in the anterior leads. QTc 427 ms. High sensitivity troponin I was 3.3 and 3.7 pg/mL. A 3rd Troponin is pending around 11:00 AM. Chest x-ray without acute process. Potassium was notably 2.8 mmol/L on presentation. Discomfort is ongoing to a minor degree. Patient notes that this presentation was similar to the presentation in June 2021. + Headache with the nitropaste. Past Medical and Surgical History: Hypertension GERD Breast biopsy D&C. [place] teeth extraction Family History: Mother is alive without cardiac issues. Father with a cardiac arrest at 73. One brother without cardiac issues. No family history of premature CAD or sudden cardiac Social History: Nonsmoker. Alcohol: 1-2 drinks 3 days per week. No illegal drug use. . Two children. Complete Review of Systems: Constitutional: No change in weight. No recent colds or illnesses. No recent travel, immobility, surgery, or injury. No fevers, nigh tsweats, or chills. HEENT: Jaw pain from grinding teeth, taking as needed Excedrin. No amaurosis fugax. No recent visual changes. No recent change in hearing. No epistaxis. Pulmonary: No history of sleep apnea. No history of pulmonary embolism. No history of asthma. Cardiac: See above. GI/Abd: GERD. On omeprazole. No dysphagia. No melana or hematochezia. Denies liver or kidney problems. Vascular: Denies history of claudication, AAA, or carotid artery disease. Hematologic: No coagulation disorder, anemia, or abnormal bleeding. Musculoskeletal: Left shoulder discomfort. Skin: No rash. Neurologic: Normal balance. No history of TIA or CVA. No history of syncope. No history of seizure. Female : See above. Endocrine: No history of DM or thyroid problems. Complete Review of Systems is as stated above, negative, or noncontribury. Allergies Allergy/AdvReac Type Severity Reaction Status Date / Time Penicillins Allergy Intermediate Rash Verified 03/26/22 19:18 Home Medications Medication Instructions Recorded Confirmed Type omeprazole 40 mg capsule,delayed 40 mg PO DAILY 06/14/21 03/26/22 History release acetaminophen 325 mg capsule 650 mg PO Q6H PRN headache #60 caps 06/16/21 03/26/22 Rx (Tylenol) amlodipine 10 mg tablet 10 mg PO DAILY #30 tabs 06/16/21 03/26/22 Rx hydrochlorothiazide 12.5 mg capsule 12.5 mg PO DAILY 03/26/22 03/26/22 History Patient History Social History Smoking Status: Never smoker Second Hand Exposure: No; Do You Dip or Chew Tobacco: No; Tobacco Cessation Education Requested by Patient: No Hx Alcohol Use: Yes Alcohol type: beer Hx Substance Use: No Preferred Language: Bahraini Communication Ability: Effective Applications Specialist Required: No Beliefs That Will Affect Care: None Current Living Situation: Spouse and Family Other Information That Helps Us Care for You: No Feels Safe at Home: Yes Safety Concerns: Feels Safe At This Time Assistive Devices: None Review of Systems Review of Systems: Complete Review of Systems is as stated above, negative, or noncontributory. Physical Exam Physical Exam: General: A&Ox3. NAD. HEENT: Normocephalic. Atraumatic. Eyes: PER. Conjunctiva pink, sclera clear. Neck: No carotid bruits. No JVD. Heart: RRR, 80 bpm. No murmur. No rub. Lungs: Clear to auscultation. Abdomen: +BS. Extremities: No clubbing, cyanosis, or edema. Limited neurological examination is without focal deficits. Pulses: Posterior tibial=2/4. Results & Data ([facility]) Vital Signs (Past 12 Hours) Vital Signs Temp Pulse Pulse Resp BP BP BP 03/27/22 09:30 75 03/27/22 07:48 36.6 C 106 H 18 117/74 03/27/22 04:33 36.6 C 115 H 20 120/67 03/26/22 23:49 100 H 03/26/22 23:57 36.7 C 105 H 15 146/90 H 03/26/22 23:54 03/26/22 22:45 106 H 20 03/26/22 22:30 107 H 16 141/87 H 03/26/22 23:20 Pulse Ox O2 Del Method 03/27/22 09:30 03/27/22 07:48 99 Room Air 03/27/22 04:33 98 Room Air 03/26/22 23:49 03/26/22 23:57 97 Room Air 03/26/22 23:54 Room Air 03/26/22 22:45 96 Room Air 03/26/22 22:30 97 Room Air 03/26/22 23:20 Room Air Laboratory Results Cardiac Enzymes 03/26/22 03/27/22 Range/Units 18:19 05:52 AST 16 (13-39) U/L Troponin I High Sens 3.3 3.7 (0-14) pg/ml CBC 03/26/22 03/27/22 Range/Units 18:19 05:52 WBC 8.11 6.60 (4.8-10.8) K/ul RBC 4.56 4.01 (3.93-5.22) M/uL Hgb 14.1 12.2 (12.0-16.0) g/dl Hct 40.2 35.5 (34.1-44.9) % Plt Count 298 260 (130-400) K/uL Neut # (Auto) 5.42 4.18 (1.4-6.5) K/uL Lymph # (Auto) 1.92 1.48 (1.2-3.4) K/uL [place] # (Auto) 0.68 0.67 (0.24-0.82) K/uL Eos # (Auto) 0.03 0.22 (0-0.50) K/uL Baso # (Auto) 0.04 0.04 (0-0.2) K/uL Comprehensive Metabolic Panel 03/26/22 03/27/22 Range/Units 18:19 05:52 Sodium 136 138 (136-145) mmol/L Potassium 2.8 L 3.0 L (3.5-5.1) mmol/L Chloride 97 L 103 (98-107) mmol/L Carbon Dioxide 26 27 (21-32) mmol/L BUN 14 12 (6-23) mg/dl Creatinine 0.87 0.71 (0.6-1.2) mg/dl Glucose 103 H 84 (70-99(Fasting)) mg/dl Calcium 10.0 8.7 (8.5-10.1) mg/dl AST 16 (13-39) U/L ALT 8 (7-52) U/L Alkaline Phosphatase 50 (34-104) U/L Total Protein 8.0 (6.0-8.3) gm/dl Albumin 4.6 (3.4-5.0) gm/dl Intake and Output 03/26/22 03/27/22 03/27/22 22:59 06:59 14:59 Intake Total 600 / 600 0 / 600 Balance 600 / 600 0 / 600 Intake: IV 600 / 600 Potassium Chloride / Wtr 10 meq 100 / 100 In 100 ml @ 100 mls/hr IV ONE ONE Rx#:[id number] Sodium Chloride 0.9% 1000ML 500 500 / 500 ml @ 999 mls/hr IV .Q31M ONE Rx#:[id number] Oral 0 / 0 Other: Other Intake Source npo # Unmeasured Voids 1 Weight 66.5 kg 65.1 kg Weight Measurement Method Built in [facility] Diagnostic Findings Continuous telemetry monitoring reveals sinus/sinus tachycardia. No atrial fibrillation or flutter. No VT. No significant bradycardia, pauses, or high dgree AV block.
[2022-03-27] MEDS ORDERED: LOSARTAN POTASSIUM 25 MG TAB PO SCH (12:00)
[2022-03-27] MEDS: ACETAMINOPHEN 325 MG TAB PO PRN ×2 (12:27→16:33)
--- NOTE | 2022-03-27 15:13 | Discharge Summary ---
Date of Service March 27, 2022 Admission HPI Per Admitting Provider This 47-year-old female with past medical history significant for hypertension, GERD, presents with chest pain that started today evening, pressure-like feeling about 5-6 in severity and occasional sharp pains left to chest, 910 in severity. She also has some left shoulder pain about 2/10 in severity.Whenever she takes deep breath, there is no pain, but feels different. Some nausea. No headache, no dizziness, no blurred vision, no earache, no runny nose, no sore throat, no cough, no difficulty swallowing. Appetite is okay. Currently, when the pain is severe, she feels short of breath. No abdominal pain. Normal bowel and bladder movements. No hematuria, no blood in the stools. No swelling in the legs. Otherwise, before this, she was ambulating fine. Nonsmoker. No family history of heart disease. The patient states she was in the hospital in June 2021 with a similar problem. At that time, she was found to have hypertensive urgency, elevated blood pressure and said when her blood pressure was controlled, the chest pain improved. She checks her blood pressure regularly at home and it usually it ranges in 120/80 range. Once a while it goes in 130/90s. After June, this is second time it happened. Admission Exam Per Admitting Provider GENERAL: The patient is of moderate build, not in acute distress. VITAL SIGNS: Temperature 37.6, pulse 113, respirations 22, blood pressure 119/93, oxygen 100% on room air. HEENT: Pupils equal, round and reactive to light. Oral mucosa moist. NECK: No JVD, no neck masses. CARDIOVASCULAR: S1 and S2 heard. Regular rate and rhythm. No murmur, no gallop. RESPIRATORY SYSTEM: Normal AP diameter. No accessory muscle use. No wheezing, no crackles. ABDOMEN: Soft, bowel sounds present, nontender, no distention. CENTRAL NERVOUS SYSTEM: Cranial nerves II-XII grossly intact, nonfocal. EXTREMITIES: No edema, no erythema. Principal Diagnosis Chest pain, ACS rule out GERD Discharge Exam Constitutional: WD/WN, vitals as above, NAD, sitting up in bed, pleasant, conversing easily Respiratory: normal respiratory effort, lungs clear to auscultation, no wheeze, rales, rhonchi. Normal insp/exp effort, no accessory muscle use Cardiovascular: RRR, no murmur, no edema Vessels: no JVD or carotid bruit Chest: normal inspection of chest Abdomen: normal bowel sounds, soft, nontender, no hepatosplenomegaly Musculoskeletal: no cyanosis or clubbing, extremities motor strength 5/5 Skin: no rashes, warm and dry normal turgor Neurologic: PERRL, EOMI, accommodation nl, no face palsy, no dysarthria CN's II- XI intact bilaterally and moves all extremities Psychiatric: A+Ox3, euthymic affect Lymphatic: no cervical or axillary lymphadenopathy : deferred Discharge Data Allergies Allergy/AdvReac Type Severity Reaction Status Date / Time Penicillins Allergy Intermediate Rash Verified 03/26/22 19:18 Consultations 03/26/22 21:28 ED Decision to Admit Stat 03/27/22 08:00 Consult Cardiology Routine Hospital Course (1) Chest pain: (2) Severe hypertension: (3) Hypokalemia: Plan Patient is a 47-year-old female with past medical history of GERD who presented to the ED with chest pain. On presentation to the ED her SBP was 170s; other vitals were stable. EKG shows nonspecific ST and T wave changes in inferolateral leads. High sensitive troponin was negative. Patient was admitted to telemetry floor. Cardiology was consulted. Echocardiogram was done which showed EF of 55 to 60%; normal left ventricular wall motion. Cardiology recommended outpatient coronary CT which will be scheduled by Dr. Lizarraga. Losartan was added to the patient's antihypertensive regimen. Protonix twice daily was prescribed for GERD. Outpatient follow-up with her primary care provider was set up. Total Time Total Time Spent Total Time Spent (In Minutes): 40 Total Time Includes: Examination of the Patient, Discharge Planning, Medication Reconciliation, Communication With Other Providers and Other Discharge Plan Discharge Items Patient Disposition: Home - Self-Care Reason For Visit: CHEST PAIN Discharge Diagnosis: Chest pain, ACS ruled out Activity: Resume your previous activity Non-emergency contact: Primary Care Provider Call non-emergency contact if: you have any medication questions and your symptoms worsen Follow-up/Referrals: Preston Fernandez DO [Primary Care Provider] - (Date & Time 03/31/2022 12:00 PM Provider Preston Fernandez DO Department [facility] ) Diet: Regular Addtl Attending Provider Instructions: You were admitted to the hospital with chest pain. Cardiology evaluated you during the hospitalization. Echocardiogram was done which showed ejection frac tion of 55 to 60%; no abnormality were seen. Dr. Lizarraga has ordered cardiac CT to look for calcification in coronary arteries. It will be arranged as outpatient. You are prescribed losartan 25 mg once daily for high blood pressure. Please continue to take amlodipine and hydrochlorothiazide. Please measure your blood pressure daily at home in the morning at the same time. Please keep a record of it and follow-up with your primary care doctor. You were also prescribed Protonix 40 mg to be taken twice daily for acid reflux. Please follow-up with your primary care doctor on March 31. Pending Studies at Discharge: No Stand-Alone Forms: [facility], Smoking Cessation Medications and DC Order Prescriptions: New losartan 25 mg Tablet 25 mg PO QAM Qty: 30 0RF pantoprazole 40 mg Tablet,Delayed Release (Dr/Ec) 40 mg PO BID Qty: 60 0RF Continued acetaminophen [Tylenol] 325 mg capsule 650 mg PO Q6H PRN (Reason: headache) Qty: 60 0RF amlodipine 10 mg tablet 10 mg PO DAILY Qty: 30 0RF hydrochlorothiazide 12.5 mg capsule 12.5 mg PO DAILY Discontinued omeprazole 40 mg Capsule,Delayed Release(Dr/Ec) 40 mg PO DAILY Discharge Orders: Discharge Order (Routine); Ordered 03/27/22 Ordered By: Tucker Dominguez Admission Data Admit Date/Time: 03/26/22 22:23 Attending Provider: Tucker Dominguez Admit Provider: Kennedy Borges Primary Care Provider: Preston Fernandez Other Providers: Kennedy Borges ; Gilbert Bonilla ; Andriy Scott ; Diallo Ly ; Raj Hoskins ; Gagan Lizarraga ; Kyrie Morocho ; Farida Robertson ; Myrna Bazzi ; Melinda Dent ; Kosta Edwards
--- NOTE | 2022-03-27 18:26 | Electrocardiogram Report ---
Test Reason : Blood Pressure : / mmHG Vent. Rate : 095 BPM Atrial Rate : 095 BPM P-R Int : 116 ms QRS Dur : 088 ms QT Int : 362 ms P-R-T Axes : 039 033 013 degrees QTc Int : 454 ms Normal sinus rhythm Nonspecific ST abnormality Abnormal ECG When compared with ECG of 26-MAR-2022 18:17, No significant change was found Confirmed by Rajendra Stephenson ([id number]) on 03/27/2022 6:25:35 PM Referred By: REFERRED SELF Confirmed By:Kishan Stephenson
== END 2022-03-27 17:15 | disposition home or self-care (01) ==
LOC: ED 18:04 → 4W 18:04